=== PATIENT | male | born 1990 | race American Indian/Alaskan Native ===

== ENCOUNTER 2019-01-19 13:25 | Emergency (ER) | payer OTHER ==
[2019-01-19 13:50] VITALS: BP 117/81
--- NOTE | 2019-01-19 13:50 | Emergency Department Report ---
Chief Complaint: Extremity Injury, Lower Stated Complaint: PINKY TOE FRACTURE FROM FALL Time Seen by Provider: 01/19/19 13:48 - HPI History of Present Illness: pt states he fell down the steps about 4 days ago says he fell down 6 steps has been ambulatory right little toe states he has been icing it and using epsom salt no PMHx no daily meds no tobacco (+) marijuana occ drinker MSE screening note: Focused history and physical exam performed. Due to findings the following was ordered: XR right foot
--- NOTE | 2019-01-19 14:46 | XRay Report ---
RIGHT FOOT, 2 views: History: Right fifth toe injury. The bony architecture is intact. Bony alignment is normal. No soft tissue abnormalities are seen. The joint spaces appear preserved. IMPRESSION: Normal right foot.
--- NOTE | 2019-01-19 16:00 | Emergency Department Report ---
HPI - General Chief Complaint: Extremity Injury, Lower Time Seen by Provider: 01/19/19 13:48 - HPI HPI: 28-year-old Afro-[place] male presents to the emergency department with right fifth/pinky toe pain and swelling that occurred after he fell down a few stairs 4 days ago. He has been using becky tape and some ice. He has pain to the top of the toe and some swelling in this area as well. No past medical history. ED Past Medical Hx - Past Medical History Previous Medical History?: No - Surgical History Past Surgical History?: No - Social History Smoking Status: Never Smoker Substance Use Type: Alcohol, Marijuana ED Review of Systems ROS: Stated complaint: PINKY TOE FRACTURE FROM FALL Other details as noted in HPI Comment: All other systems reviewed and negative Constitutional: denies: chills, fever Eyes: denies: eye pain, vision change ENT: denies: ear pain, throat pain Respiratory: denies: cough, shortness of breath Cardiovascular: denies: chest pain, palpitations Gastrointestinal: denies: abdominal pain, vomiting Genitourinary: denies: dysuria, discharge Musculoskeletal: joint swelling, arthralgia Skin: denies: rash, change in color Neurological: denies: headache, numbness Physical Exam - Physical Exam Vital Signs: Vital Signs 01/19/19 13:48 Temperature 98.2 F Pulse Rate 86 Respiratory 18 Rate Blood Pressure 117/81 O2 Sat by Pulse 100 Oximetry Physical Exam: GENERAL: The patient is well-developed well-nourished. HENT: Normocephalic. Atraumatic. Patient has moist mucous membranes. EYES: Extraocular motions are intact. NECK: Supple. Trachea is midline. CHEST/LUNGS: Clear to auscultation. There is no respiratory distress noted. HEART/CARDIOVASCULAR: Regular. There is no tachycardia. There is no murmur. ABDOMEN: There is no abdominal distention. SKIN: There is some nonpitting swelling to the dorsum of the right pinky toe over the interphalangeal joint. No skin color change. NEURO: The patient is awake, alert, and oriented. The patient is cooperative. The patient has no focal neurologic deficits. The patient has normal speech. MUSCULOSKELETAL: Tenderness to palpation to the right fifth toe. Capillary refill less than 2 seconds. ED Course Vital Signs 01/19/19 13:48 Temperature 98.2 F Pulse Rate 86 Respiratory 18 Rate Blood Pressure 117/81 O2 Sat by Pulse 100 Oximetry ED Medical Decision Making - Radiology Data Radiology results: image reviewed interpreted by me: X-ray of the right foot does not show any fracture, dislocation or any acute process. - Medical Decision Making Patient presents with a four-day history of some right pinky toe pain and swelling to the dorsum of the toe after falling down a few stairs. He is able to ambulate. There is definitely some swelling to the dorsum of the toe but on x-ray and there does not appear to be any fracture, dislocation or any other acute process. The patient will continue to becky tape his toes and he has been given some referrals for podiatry. He will return to the ER if any worsening of his symptoms or any acute distress. - Differential Diagnosis fracture, dislocation, contusion, sprain, strain Critical Care Time: No Critical care attestation.: If time is entered above; I have spent that time in minutes in the direct care of this critically ill patient, excluding procedure time. ED Disposition Clinical Impression: Sprain of fifth toe, right Qualifiers: Encounter type: initial encounter Qualified Code(s): S93.504A - Unspecified sprain of right lesser toe(s), initial encounter Fall down stairs Qualifiers: Encounter type: initial encounter Qualified Code(s): W10.8XXA - Fall (on) (from) other stairs and steps, initial encounter Disposition: DC-01 TO HOME OR SELFCARE Is pt being admited?: No Condition: Stable Additional Instructions: You can continue to becky tape the pinky toe to your fourth toe as needed for discomfort. I am giving you a referral for 2 different podiatrists (foot doctors) to follow-up regarding your pinky toe pain. Return to the emergency Department with any worsening of your symptoms or any acute distress. Referrals: MARIAH VELAZQUEZ MD [Staff Physician] - 3-5 Days ARABELLA CRUZ DPM [Staff Physician] - 3-5 Days Time of Disposition: 15:59
== END 2019-01-19 16:04 | disposition home or self-care (01) ==
LOC: ED 13:25
DX: S93.504A Unspecified sprain of right lesser toe(s), initial encounter (principal); F12.10 Cannabis abuse, uncomplicated; Z91.013 Allergy to seafood; W10.8XXA Fall (on) (from) other stairs and steps, initial encounter; Y93.89 Activity, other specified; Y92.89 Other specified places as the place of occurrence of the external cause; Y99.8 Other external cause status